=== PATIENT | male | born 1995 | race Two or more races ===

== ENCOUNTER → 2021-05-04 | Outpatient (CLI) | payer OTHER ==
--- NOTE | 2021-05-05 08:33 | RAD ---
KNEE 3 VIEWS right Clinical Indication: Reason: Injury playing basketball / Spl. Instructions: / History: Comparison: None. Findings: There is no acute fracture or dislocation. There is old fracture of the proximal diaphysis of the fib anatoly, partially imaged. The tricompartmental joint spaces are maintained. The patella is in anatomic p osition. There is no soft tissue abnormality. There is no joint effusion. IMPRESSION: No acute fracture. No joint effusion. Electronically signed by: John Boyd MD (05/05/2021 8:31 AM) [id number]
== END ==
LOC: RAD 16:03
PROVIDERS: ATTEND Family Medicine
DX: S83.241A Other tear of medial meniscus, current injury, right knee, initial encounter (principal); X58.XXXA Exposure to other specified factors, initial encounter; Y93.89 Activity, other specified; Y92.89 Other specified places as the place of occurrence of the external cause; Y99.8 Other external cause status
CPT/HCPCS: 73562